=== PATIENT | male | born 1970 | race Caucasian/White ===

== ENCOUNTER 2018-12-15 02:24 | Outpatient (CLI) | payer MEDICAID, SELFPAY ==
--- NOTE | 2018-12-15 15:57 | DI.RAD_ITS ---
SYMPTOMS/DIAGNOSIS: PAIN IN ELBOW X 8 MONTHS, HARD TIME WITH STRENGTH IN ARM, LATERAL EPICONDYLITIS, M77.10 LEFT ELBOW: Three views were obtained. There is no evidence of an elbow joint effusion or hemarthrosis. There is mild soft tissue swelling over the olecranon. No bony abnormality seen.
== END 2018-12-15 02:44 ==
PROVIDERS: PCP Family Medicine; Visit Provider Family Medicine
DX: M25.522 Pain in left elbow (principal); M77.10 Lateral epicondylitis, unspecified elbow; M79.89 Other specified soft tissue disorders
CPT/HCPCS: 73080

== ENCOUNTER 2025-01-22 03:57 | Outpatient (CLI) | payer MEDICAID, SELFPAY ==
[2025-01-22 21:13] LABS: Calculated LDL 108 mg/dL (<100); Cholesterol 162 mg/dL (<200); HDL Cholesterol 46 mg/dL (>or=40); Triglyceride 40 mg/dL (<150)
== END 2025-01-22 03:58 | disposition home or self-care (01) ==
LOC: LBO 03:57
PROVIDERS: PCP Family Medicine; Referring Provider Family Medicine; Visit Provider Family Medicine
DX: I25.10 Atherosclerotic heart disease of native coronary artery without angina pectoris (principal)
CPT/HCPCS: 36415; 80061